=== PATIENT | male | born 1990 | race American Indian/Alaskan Native ===

== ENCOUNTER 2020-08-10 08:52 | Emergency (ER) | payer SELFPAY ==
--- NOTE | 2020-08-10 09:06 | Emergency Department Report ---
History of Present Illness - General Stated Complaint: OVERDOSE Time Seen by Provider: 08/10/20 09:03 Source: patient, EMS Mode of arrival: Stretcher Limitations: No Limitations - History of Present Illness Initial Comments: Chief complaint: Overdose HPI: This is a 29-year-old male with history of heroin use, diabetes mellitus who presents with unresponsive status. bus attendant found patient unresponsive in room. EMS was called. Patient was found to have sonorous respirations and pinpoint pupil. Blood glucose greater than 200. Patient was revived with 2 mg of intranasal naloxone. Patient admits to injecting heroin this morning. He has used heroin for over 6 years. He denies suicidal homicidal ideation. He denies any discomfort at this time. MD Complaint: accidental overdose -: This morning Context: Accidental Overdose: wanted to get high Treatments Prior to Arrival: oxygen, narcan - Related Data Allergies Allergy/AdvReac Type Severity Reaction Status Date / Time No Known Allergies Allergy Verified 08/10/20 09:06 ED Review of Systems ROS: Stated complaint: OVERDOSE Other details as noted in HPI Comment: All other systems reviewed and negative Constitutional: denies: fever, malaise Respiratory: denies: cough, shortness of breath Cardiovascular: denies: chest pain Gastrointestinal: denies: abdominal pain, nausea, vomiting ED Past Medical Hx - Past Medical History Previous Medical History?: Yes Hx Diabetes: Yes - Social History Substance Use Type: Heroin ED Physical Exam - General Limitations: No Limitations General appearance: alert, in no apparent distress - Head Head exam: Present: atraumatic, normocephalic - Eye Eye exam: Present: normal appearance - ENT ENT exam: Present: mucous membranes moist - Neck Neck exam: Present: normal inspection, full ROM - Respiratory Respiratory exam: Present: normal lung sounds bilaterally. Absent: respiratory distress, wheezes, rales, rhonchi - Cardiovascular Cardiovascular Exam: Present: regular rate, normal rhythm, normal heart sounds. Absent: systolic murmur, diastolic murmur, rubs, gallop - GI/Abdominal GI/Abdominal exam: Present: soft, normal bowel sounds. Absent: distended, tende rness, guarding, rebound - Rectal Rectal exam: Present: deferred - Extremities Exam Extremities exam: Present: normal inspection - Neurological Exam Neurological exam: Present: alert, oriented X3 - Psychiatric Psychiatric exam: Present: normal affect, normal mood - Skin Skin exam: Present: warm, dry, intact, normal color. Absent: rash ED Course Vital Signs 08/10/20 08/10/20 08/10/20 09:11 09:13 09:30 Temperature 97.9 F Pulse Rate 93 H Respiratory 18 Rate Blood Pressure 131/85 Blood Pressure 131/85 [Left] O2 Sat by Pulse 99 100 100 Oximetry 08/10/20 08/10/20 08/10/20 10:00 10:30 11:00 Temperature Pulse Rate Respiratory Rate Blood Pressure 116/75 116/75 106/78 Blood Pressure [Left] O2 Sat by Pulse 98 97 96 Oximetry 08/10/20 08/10/20 08/10/20 11:30 12:00 12:30 Temperature Pulse Rate Respiratory Rate Blood Pressure 116/75 118/81 118/81 Blood Pressure [Left] O2 Sat by Pulse 95 93 95 Oximetry 08/10/20 13:00 Temperature Pulse Rate Respiratory Rate Blood Pressure 116/81 Blood Pressure [Left] O2 Sat by Pulse 98 Oximetry ED Medical Decision Making - Medical Decision Making Heroin overdose received Narcan naloxone in the field. After 6 hours observation, patient is awake alert. Patient did not have any recurrent respiratory depression or cardiovascular instability while observed. He will be discharged home. Critical care attestation.: If time is entered above; I have spent that time in minutes in the direct care of this critically ill patient, excluding procedure time. ED Disposition Clinical Impression: Accidental heroin overdose Disposition: DC-01 TO HOME OR SELFCARE Is pt being admited?: No Does the pt Need Aspirin: No Condition: Stable Instructions: Opioid Overdose Referrals: PRIMARY CAREMD [Primary Care Provider] - 3-5 Days BEVERLY LAW MD [Staff Physician] - 3-5 Days
[2020-08-10 15:57] VITALS: BP 111/74
== END 2020-08-10 16:05 | disposition home or self-care (01) ==
LOC: ED 08:52
DX: T40.1X1A Poisoning by heroin, accidental (unintentional), initial encounter (principal); E11.9 Type 2 diabetes mellitus without complications; Y92.89 Other specified places as the place of occurrence of the external cause

== ENCOUNTER 2020-08-19 10:31 | Emergency (ER) | payer SELFPAY ==
--- NOTE | 2020-08-19 11:13 | Emergency Department Report ---
History of Present Illness - General Chief Complaint: Overdose Stated Complaint: OD Time Seen by Provider: 08/19/20 10:42 Source: EMS Mode of arrival: Stretcher Limitations: No Limitations - History of Present Illness Initial Comments: Chief complaint: "I overdosed again." HPI: This is a 29-year-old male with history of polysubstance abuse and heroin d ependence who presents with heroin overdose. He admitted to injecting heroin today. He was found by his roommate. He received 2 mg of naloxone per EMS. He denies depression. He denies suicidal ideation. He has been using heroin for over 7 years. He has been in his normal state of health. He currently denies chest pain shortness of breath or any physical complaints. MD Complaint: accidental overdose -: Sudden, This morning How Overdose Was Discovered: family/friend present Context: Accidental Overdose: wanted to get high Associated Symptoms: other (Patient was unresponsive at his home) Treatments Prior to Arrival: narcan - Related Data Allergies Allergy/AdvReac Type Severity Reaction Status Date / Time No Known Allergies Allergy Verified 08/10/20 09:06 ED Review of Systems ROS: Stated complaint: OD Other details as noted in HPI Comment: All other systems reviewed and negative Constitutional: denies: fever, malaise Respiratory: denies: cough, shortness of breath Cardiovascular: denies: chest pain Gastrointestinal: denies: abdominal pain, nausea, vomiting Psychiatric: depression ED Past Medical Hx - Past Medical History Previous Medical History?: Yes Hx Diabetes: Yes - Surgical History Past Surgical History?: No - Social History Smoking Status: Current Every Day Smoker Substance Use Type: Alcohol, Heroin, Methamphetamines ED Physical Exam - General Limitations: No Limitations General appearance: alert, in no apparent distress, other (Alert appropriate ) - Head Head exam: Present: atraumatic, normocephalic - Eye Eye exam: Present: normal appearance - ENT ENT exam: Present: mucous membranes moist - Neck Neck exam: Present: normal inspection, full ROM - Respiratory Respiratory exam: Present: normal lung sounds bilaterally. Absent: respiratory distress, wheezes, rales - Cardiovascular Cardiovascular Exam: Present: regular rate, normal rhythm, normal heart sounds. Absent: systolic murmur, diastolic murmur, rubs, gallop - GI/Abdominal GI/Abdominal exam: Present: soft, normal bowel sounds. Absent: distended, tenderness, guarding, rebound - Rectal Rectal exam: Present: deferred - Extremities Exam Extremities exam: Present: normal inspection - Neurological Exam Neurological exam: Present: alert, oriented X3 - Psychiatric Psychiatric exam: Present: normal affect, normal mood - Skin Skin exam: Present: warm, dry, intact, normal color. Absent: rash ED Course Vital Signs 08/19/20 08/19/20 08/19/20 10:39 10:44 10:46 Pulse Rate 104 H 102 H Respiratory 10 L 14 Rate Blood Pressure 133/82 Blood Pressure 138/82 [Left] O2 Sat by Pulse 93 100 100 Oximetry 08/19/20 08/19/20 08/19/20 11:00 11:16 11:30 Pulse Rate 101 H 96 H 84 Respiratory 13 21 19 Rate Blood Pressure 122/78 122/78 122/78 Blood Pressure [Left] O2 Sat by Pulse 100 99 99 Oximetry 08/19/20 08/19/20 08/19/20 11:46 12:00 12:16 Pulse Rate 81 81 80 Respiratory 22 15 18 Rate Blood Pressure 122/78 113/64 113/64 Blood Pressure [Left] O2 Sat by Pulse 98 98 98 Oximetry 08/19/20 12:30 Pulse Rate 86 Respiratory 14 Rate Blood Pressure 113/64 Blood Pressure [Left] O2 Sat by Pulse 100 Oximetry ED Medical Decision Making - Medical Decision Making Unintentional heroin overdose revived with IV naloxone. Patient denies depression or suicidal ideation. I strongly suggested having home naloxone. Also suggested outpatient substance abuse programs. Patient was observed in the emergency department for 5 hours without respiratory depression or cardiovascular instability. Patient was given a list of outpatient substance abuse programs. Critical care attestation.: If time is entered above; I have spent that time in minutes in the direct care of this critically ill patient, excluding procedure time. ED Disposition Clinical Impression: Accidental heroin overdose Disposition: DC-01 TO HOME OR SELFCARE Is pt being admited?: No Does the pt Need Aspirin: No Condition: Stable Instructions: Accidental Drug Poisoning, Adult, Opioid Overdose Referrals: PRIMARY CARE, [Primary Care Provider] - 3-5 Days
[2020-08-19 12:37] VITALS: BP 113/64
[2020-08-19] MEDS ORDERED: PROPOFOL 500 MG/50 ML VIAL IV ONE (15:05)
== END 2020-08-19 15:44 | disposition home or self-care (01) ==
LOC: ED 10:31
DX: T40.1X1A Poisoning by heroin, accidental (unintentional), initial encounter (principal); E11.9 Type 2 diabetes mellitus without complications; F17.200 Nicotine dependence, unspecified, uncomplicated; F15.90 Other stimulant use, unspecified, uncomplicated; X58.XXXA Exposure to other specified factors, initial encounter
CPT/HCPCS: J2704